=== PATIENT | female | born 1995 | race Caucasian/White ===

== ENCOUNTER 2020-06-29 08:02 | Outpatient (REF) | payer OTHER, SELFPAY ==
[2020-06-29 13:46] LABS: CT PCR NOT DETECTED (Not Detect.); NG PCR NOT DETECTED (Not Detect.)
[2020-06-30 09:34] LABS: BV Int Neg Control Negative (Negative); BV Int Pos Control Positive (Positive)
== END 2020-06-29 08:03 | disposition home or self-care (01) ==
LOC: HO.LAB 08:02
PROVIDERS: PCP Internal Medicine; Referring Provider Internal Medicine; Visit Provider Obstetrics & Gynecology
DX: N89.8 Other specified noninflammatory disorders of vagina (principal); Z11.8 Encounter for screening for other infectious and parasitic diseases; Z11.3 Encounter for screening for infections with a predominantly sexual mode of transmission
CPT/HCPCS: 81025; 87480; 87491; 87510; 87591; 87660; 99212

== ENCOUNTER 2021-03-16 13:19 | Emergency (ER) | payer OTHER, MEDICAID, SELFPAY ==
[2021-03-16 13:48] VITALS: BP 110/74; PULSE 112; O2SAT 97
[2021-03-16 14:00] VITALS: BP 102/64; PULSE 114; RESP 20; TEMP 37.4; O2SAT 96; BMI 19.6
[2021-03-16 17:57] LABS: Basophils Percent Auto 0.2 % (0-2); Hematocrit 47.2 % (37-47); Imm Gran Abs Auto 0.05 X10*3/uL (0.00-0.03); Imm Gran Pct Auto 0.4 % (0.0-0.4); Lymphocytes Absolute Auto 0.4 X10*3/uL (1.2-4.9); Lymphocytes Percent Auto 3.1 % (20-40); MANUAL DIFF FLAG SCAN; Mean Corpuscular HGB Conc 33.9 g/dl (31.0-35.0); Mean Corpuscular Hemoglobin 29.9 pg (27.0-33.0); Mean Corpuscular Volume 88.1 fL (80-98); Monocytes Absolute Auto 0.7 X10*3/uL (0.1-1.2); Neutrophils Absolute Auto 12.1 X10*3/uL (2.0-8.3); Neutrophils Percent Auto 91.3 % (45-73); Platelet Count 247 X10*3/uL (160-400); Red Blood Count 5.36 X10*6/uL (4.20-5.50); Red Cell Distribution Width 12.5 % (11.0-16.0); SCAN SMEAR FLAG 1; White Blood Count 13.2 X10*3/uL (4.8-10.8)
--- NOTE | 2021-03-16 18:05 | ED_ITS ---
HPI - Nausea/Vomiting/Diarrhea General Chief complaint: Nausea/Vomiting/Diarrhea Stated complaint: N/V/D Source: patient Mode of arrival: ambulatory Limitations: no limitations History of Present Illness HPI Narrative: 25-year-old female presents with nausea, vomiting, diarrhea with epigastric pain for approximately 1 day. Started at 4:00 a.m.. Stated to feel well yesterday, does not report eating any questionable foods or any sick contacts. Has not traveled outside the country. She has not been able to eat or drink since this morning. States to feel dehydrated. Denies chest pain or pressure, palpitations, shortness of breath, shortness breath on exertion, abdominal distention, dysuria, hematuria, melena, hematochezia, hematemesis, dizziness, lightheadedness, or any other concerning symptoms. She denies alcohol, tobacco, and illicit drug use. MD elicited complaint: nausea, vomiting and abdominal pain Onset (ago): day(s) (1) Description of vomiting: watery and bilious Description of diarrhea: watery Associated nausea: Yes Associated abdominal pain: Yes Location of pain: epigastric Pain consistency: intermittent and now resolved Severity: mild Quality: aching Exacerbating factors: eating and vomiting Relieving factors: none Associated symptoms: denies other symptoms Related Data Home Medications Medication Instructions Recorded Confirmed levonorgestrel 20 mcg/24 hours (6 INTRAUTERINE 06/29/20 06/29/20 yrs) 52 mg intrauterine device (Mirena) Previous Rx's Medication Instructions Recorded metronidazole 500 mg tablet 500 mg PO BID 7 Days #14 tab 07/04/20 (Flagyl) metoclopramide HCl 10 mg tablet 10 mg PO Q6H PRN #10 tab 03/16/21 (Reglan) Allergies Allergy/AdvReac Type Severity Reaction Status Date / Time No Known Allergies Allergy Verified 03/16/21 14:05 [No Known Allergies*] Review of Systems Review of Systems: Constitutional: No Weight loss, No Fever, No Chills, No Night Sweats, No Fatigue, No Malaise ENT/Mouth: No Hearing loss, No Ear Pain, No Nasal Congestion, No Sinus Pain, No Hoarseness, No sore throat, No Rhinorrhea, No Swallowing Difficulty Eyes: No Eye Pain, No Swelling, No Redness, No Foreign Body, No Discharge, No Vision Changes Cardiovascular: No Chest Pain, No SOB, No Dyspnea on Exertion, No Orthopnea, No Edema, No Palpitations Respiratory: No Cough, No Sputum, No Wheezing, No Smoke Exposure, No Dyspnea Gastrointestinal: Positive Nausea, Positive Vomiting, positive Diarrhea, positive abdominal Pain, No Hematochezia, No Melena Genitourinary: no irregular bleeding, No Dysuria, No Urinary Frequency, No Hematuria, No Urinary Incontinence, No Urgency, No Flank Pain, No Urinary Flow Changes, No Hesitancy Musculoskeletal: No joint pain, No Myalgias, No Joint Swelling Skin: No Skin Lesions, No rash Neuro: No Weakness, No Numbness, No Paresthesias, No Loss of Consciousness, No Dizziness, No Headache Psych: No Anxiety/Panic, No Depression, No SI/HI/AH/VH, No Social Issues Heme/Lymph: No Bruising, No Bleeding,No Lymphadenopathy Endocrine: No Polyuria, No Polydipsia, No Temperature Intolerance Yes all other systems are reviewed and are negative Gastrointestinal: Gastrointestinal: Reports nausea PMFSH Past Medical History Attestation statement: The following information was validated with the patient. Source: old records reviewed Medical History Denial Family History Family History Father Asthma Mother Breast cancer Social History Social History Alcohol intake: never Patient Tobacco Use Status: Never used Tobacco Advance Directives: Yes Advance Directives Information Provided: Yes Advance Directives on File: No Patient : No Physical Exam Vital Signs: Vital Signs: Last Vital Signs Temp 98.7 F 03/16/21 19:10 Pulse 101 H 03/16/21 20:56 Resp 16 03/16/21 20:56 BP 105/64 03/16/21 20:56 Pulse Ox 99 03/16/21 20:56 Body Mass Index 19.6 Appearance: Alert. Oriented X3. Mild distress. Eyes: Pupils equal, round and reactive to light. Sclera nonicteric ENT: Pharynx normal. Dry mucous membranes Neck: Normal inspection. Neck supple. CVS: Normal heart rate and rhythm. Pulses normal. Respiratory: No respiratory distress. Breath sounds normal. Abdomen: Soft and nontender. Negative psoas, Cabrera's, McBurney's. No rebound tenderness. No CVA tenderness. Skin: Skin warm and dry. Normal skin color. Normal skin turgor. Extremities: No lower extremity edema. Gait well balanced well coordinated. Moves all extremities against resistance. Neuro: No motor deficit. No sensory deficit. Cranial nerves 2-12 intact. Course Course Course Narrative: 25-year-old female presents with nausea, vomiting, diarrhea and epigastric pain that started at 4:00 a.m.. Does not report any sick contacts. Is afebrile, appears nontoxic but fatigued. Abdominal exam negative, will order labs and urinalysis. Patient does have IUD, will order urine pregnan cy to rule out possible ectopic. U preg negative, urinalysis negative, CBC indicates elevated white count of 13.2, while patient is afebrile with negative abdominal exam feel that this is more gastroenteritis versus acute abdomen or sepsis. Patient is not septic at this time. Patient passed p.o. challenge after Reglan and Benadryl. Plan of care to discharge home with supportive measures. Patient verbalized understanding of and agrees to plan of care discharge home. MDM - Nausea/Vomiting/Diarrhea Differential Diagnosis Differential diagnosis: Likely gastroenteritis and dehydration Medical Records Attestation: I reviewed the patient's medical records. Lab Data Attestation: I reviewed the patient's lab results. Result diagrams: 03/16/21 17:43 03/16/21 18:39 Labs: Lab Results 03/16/21 03/16/21 03/16/21 Range/Units 17:43 17:43 18:39 WBC 13.2 H (4.8-10.8) X10*3/uL RBC 5.36 (4.20-5.50) X10*6/uL Hgb 16.0 (12.0-16.0) g/dl Hct 47.2 H (37-47) % MCV 88.1 (80-98) fL MCH 29.9 (27.0-33.0) pg MCHC 33.9 (31.0-35.0) g/dl RDW 12.5 (11.0-16.0) % Plt Count 247 (160-400) X10*3/uL MPV 10.0 (9.4-12.3) fL Immature Gran % (Auto) 0.4 (0.0-0.4) % Neut % (Auto) 91.3 H (45-73) % Lymph % (Auto) 3.1 L (20-40) % [place] % (Auto) 5.0 (2-11) % Eos % (Auto) 0.0 (0-4) % Baso % (Auto) 0.2 (0-2) % Lymph # (Auto) 0.4 L (1.2-4.9) X10*3/uL [place] # (Auto) 0.7 (0.1-1.2) X10*3/uL Eos # (Auto) 0.0 (0.0-0.4) X10*3/uL Baso # (Auto) 0.0 (0.0-0.2) X10*3/uL Abs Immat Gran (auto) 0.05 H (0.00-0.03) X10*3/uL Absolute Neuts (auto) 12.1 H (2.0-8.3) X10*3/uL Absolute Nucleated RBC 0.000 (0.0-0.012) X10*3/uL Nucleated RBC % (auto) 0.0 (0.0-0.2) /100WBC Smear Tech's Comments VERIFIED Sodium 143 (135-145) mmol/L Potassium 4.0 (3.3-5.1) mmol/L Chloride 110 H (96-108) mmol/L Carbon Dioxide 20 L (22-29) mmol/L Anion Gap 17 (12-20) BUN 15 (9-16) mg/dL Creatinine 0.79 (0.5-1.4) mg/dL Estim Creat Clear Calc 90.4 Estimated GFR > 60 Random Glucose 108 (60-115) mg/dL Lactic Acid (0.5-2.0) mmol/L Calcium 9.0 (8.4-10.2) mg/dL Magnesium 1.6 (1.6-2.6) mg/dL Urine Color Urine Appearance Urine pH (5.0-8.0) Ur Specific [place] (1.005-1.025) Urine Protein (NEG-TRACE) MG/DL Urine Glucose (UA) (NEG) MG/DL Urine Ketones (NEG) MG/DL Urine Blood (NEG) Urine Nitrite (NEG) Ur Leukocyte Esterase (NEG) Urine Test (NEGATIVE) 08/06/21 08/06/21 08/06/21 Range/Units 18:39 20:57 20:57 WBC (4.8-10.8) X10*3/uL RBC (4.20-5.50) X10*6/uL Hgb (12.0-16.0) g/dl Hct (37-47) % MCV (80-98) fL MCH (27.0-33.0) pg MCHC (31.0-35.0) g/dl RDW (11.0-16.0) % Plt Count (160-400) X10*3/uL MPV (9.4-12.3) fL Immature Gran % (Auto) (0.0-0.4) % Neut % (Auto) (45-73) % Lymph % (Auto) (20-40) % [place] % (Auto) (2-11) % Eos % (Auto) (0-4) % Baso % (Auto) (0-2) % Lymph # (Auto) (1.2-4.9) X10*3/uL [place] # (Auto) (0.1-1.2) X10*3/uL Eos # (Auto) (0.0-0.4) X10*3/uL Baso # (Auto) (0.0-0.2) X10*3/uL Abs Immat Gran (auto) (0.00-0.03) X10*3/uL Absolute Neuts (auto) (2.0-8.3) X10*3/uL Absolute Nucleated RBC (0.0-0.012) X10*3/uL Nucleated RBC % (auto) (0.0-0.2) /100WBC Smear Tech's Comments Sodium (135-145) mmol/L Potassium (3.3-5.1) mmol/L Chloride (96-108) mmol/L Carbon Dioxide (22-29) mmol/L Anion Gap (12-20) BUN (9-16) mg/dL Creatinine (0.5-1.4) mg/dL Estim Creat Clear Calc Estimated GFR Random Glucose (60-115) mg/dL Lactic Acid 2.0 (0.5-2.0) mmol/L Calcium (8.4-10.2) mg/dL Magnesium (1.6-2.6) mg/dL Urine Color YELLOW Urine Appearance CLEAR Urine pH 6.0 (5.0-8.0) Ur Specific [place] >= 1.030 H (1.005-1.025) Urine Protein NEG (NEG-TRACE) MG/DL Urine Glucose (UA) NEG (NEG) MG/DL Urine Ketones 15 (NEG) MG/DL Urine Blood NEG (NEG) Urine Nitrite NEG (NEG) Ur Leukocyte Esterase NEG (NEG) Urine Test NEGATIVE (NEGATIVE) Discharge Plan Discharge Clinical Impression: Gastroenteritis, Dehydration Patient Disposition: Home, Self-Care Instructions: Gastroenteritis (ED), Acute Nausea and Vomiting (ED) Additional Instructions: You were evaluated for nausea and vomiting. Her symptoms are consistent with a viral gastroenteritis. Please take Reglan as directed. Medication nausea. Drink plenty of fluids. Thank you for choosing this emergency department for evaluation. Please follow-up with primary care physician as needed. Return to the emergency department for any new, concerning, or worsening symptoms. Prescriptions: New metoclopramide HCl [Reglan] 10 mg tablet 10 mg PO Q6H PRN (Reason: nausea and vomiting) Qty: 10 RF: 0 No Action metronidazole [Flagyl] 500 mg tablet 500 mg PO BID 7 Days Qty: 14 RF: 0 Mirena 20 mcg/24 hours (6 yrs) 52 mg intrauterine device intrauterine RF: 0 Interventions: ED Discharge Assessment Last Done: 03/16/21 22:20 Discharge Date/Time: 03/16/21 22:25
[2021-03-16 18:33] LABS: Magnesium 1.6 mg/dL (1.6-2.6)
[2021-03-16] MEDS: 0.9 % Sodium Chloride 1,000 ML 999 ML IVCONT (18:43)
[2021-03-16 18:50] LABS: SLIDE REVIEW VERIFIED
[2021-03-16] MEDS: Metoclopramide HCl 10 MG/2 ML VIAL IVPUSH (19:05)
[2021-03-16] MEDS: diphenhydrAMINE HCL 50 MG/ML VIAL 25 MG IVPUSH (19:05)
--- NOTE | 2021-03-16 19:05 | PC.NURSE ---
REPORT TAKEN FROM DEEDEE JASMINE, FIRST CONTACT WITH PT, REPORTS PERFUSE VOMITING SINCE THIS MORNING. NOW BILE. INT. ABD PAIN. IVF INFUSING WITHOUT DIFFICULTY, MEDICATED PER MAR. AWAITING LAB RESULTS AND IMPROVEMENT IN SYMPTOMS. AWARE OF PLAN OF CARE.
[2021-03-16 19:10] VITALS: BP 121/69; PULSE 106; RESP 16; TEMP 37.1; O2SAT 98
[2021-03-16 19:24] LABS: Anion Gap 17 (12-20); Blood Urea Nitrogen 15 mg/dL (9-16); Carbon Dioxide 20 mmol/L (22-29); Chloride 110 mmol/L (96-108); Creatinine Clr Calc Pharmacy 90.4; Estimated Glomerular Filt Rate > 60; Glucose Random 108 mg/dL (60-115); Sodium 143 mmol/L (135-145)
[2021-03-16 20:56] VITALS: BP 105/64; PULSE 101; RESP 16; O2SAT 99
[2021-03-16 21:09] LABS: Glucose Urine UA NEG (NEG); Leukocyte Esterase Urine NEG (NEG); Nitrite Urine NEG (NEG); Specific Gravity - Urine >= 1.030 (1.005-1.025); Urine Blood NEG (NEG); Urine Ketones 15 MG/DL (NEG); Urine Protein NEG (NEG-TRACE)
[2021-03-16 21:10] LABS: Appearance Urine CLEAR; Color Urine YELLOW
[2021-03-16 21:16] LABS: UPreg QC Valid YES; Urine Pregnancy NEGATIVE (NEGATIVE)
== END 2021-03-16 22:25 | disposition home or self-care (01) ==
PROVIDERS: Nurse Practitioner Family; Emergency Provider Emergency Medicine
DX: K52.9 Noninfective gastroenteritis and colitis, unspecified (principal); E86.0 Dehydration
CPT/HCPCS: 36415; 80048; 81003; 81025; 83605; 83735; 85025; 87040; 96361; 96374; 96375; 99284; J1200; J2765